=== PATIENT | male | born 1980 | race African-American/Black ===

== ENCOUNTER 2023-09-16 09:06 | Emergency (ER) | payer SELFPAY ==
[~2023-09-16] VITALS: Ht 167.6 cm; Wt 69.0 kg
[2023-09-16 09:19] VITALS: O2SAT 98
[2023-09-16] MEDS: IBUPROFEN 600MG TABLET PO ONE (11:59)
[2023-09-16 12:30] VITALS: BP 139/93; PULSE 94; RESP 18; TEMP 97.9
== END 2023-09-16 12:43 | disposition home or self-care (01) ==
LOC: ER 09:06
DX: S92.351A Displaced fracture of fifth metatarsal bone, right foot, initial encounter for closed fracture (principal); S20.212A Contusion of left front wall of thorax, initial encounter; S60.222A Contusion of left hand, initial encounter; S09.90XA Unspecified injury of head, initial encounter; Y04.0XXA Assault by unarmed brawl or fight, initial encounter; Y93.89 Activity, other specified; Y92.89 Other specified places as the place of occurrence of the external cause; Y99.8 Other external cause status
CPT/HCPCS: 71046; 73130; 73630; 29515; 99284; Z7610